=== PATIENT | female | born 1945 | race Caucasian/White ===

== ENCOUNTER 2023-04-25 07:50 | Emergency (ER) | payer MEDICARE, SELFPAY ==
[2023-04-25 07:53] VITALS: BP 170/109
[2023-04-25 09:15] VITALS: BMI 20.3
--- NOTE | 2023-04-25 09:17 | ED.GENMED ---
History of Present Illness
<SORAYA Davalos - Last Filed: 04/25/23 10:54>
General
Chief Complaint: Fall
Source: patient
Exam Limitations: none
Time Seen by Provider: 04/25/23 09:01
Nursing documentation reviewed up to this point in time: agreed with
Travel History
Have you had any contact with someone who has COVID-19?: No
Do you have any symptoms of coronavirus? Fever > 100 degrees, chills, cough, shortness of breath, sore throat, loss of taste or smell, muscle aches, or headache?: No
History of Present Illness
History of Present Illness:
Patient is a 77-year-old female who fell down approximately 13 wooden steps this morning. She did hit the right side of her head. She denies loss of consciousness. She does have soreness to the right side of her head. She c/o of neck pain.
She is not on blood thinners. She reports that she scraped her legs but denies any leg pain.
Past History
<SORAYA Davalos - Last Filed: 04/25/23 10:54>
Past History
ED Past Medical History: None
ED Past Surgical History: Appendectomy and Gynecological (Hysterectomy)
Social History
Tobacco: Non-smoker
Alcohol: None
Drug: None
Personal:
Living: with family
Review of Systems
<SORAYA Davalos - Last Filed: 04/25/23 10:54>
Review of Systems
Allergies reviewed?: Yes
All Other Systems: ROS reviewed and negative except as documented in HPI and ROS
Constitutional: Denies fever, fatigue or chills
Cardiac: Reports no symptoms
ABD/GI: Reports no symptoms; Denies nausea or vomiting
Musculoskeletal: Reports other (Neck pain)
Skin: Reports no symptoms
Neurological: Reports other (Right sided bruise to head); Denies dizzy or headache
Phy Exam
<SORAYA Davalos - Last Filed: 04/25/23 10:54>
General Physical Exam
General Presentation: no apparent distress
General age: appears stated age
General Skin: warm and dry
General Habitus: elderly
General Mental: alert
General Hydration: appears well hydrated
Eye Exam
Eye Exam: PERRL and EOMI
Eye Exam General: PERRL: bilateral and EOM intact: bilateral
Pupil Exam: Bilateral: round and reactive
Neurological Exam
Neurological Exam: alert and oriented x3
Musculoskeletal Exam
Musculoskeletal Exam: other (head with right sided hematoma to right lateral eyebrow region , tender throughout cervical spine)
Skin Exam
Skin Exam: normal color and warm/dry
Psychiatric Exam
Psychiatric Exam: normal mood/affect
Course
<SORAYA Davalos - Last Filed: 04/25/23 10:54>
Orders/Labs/Results
Orders:
Orders
04/25/23 09:16
CT Head W/o Iv Contrast Urgent
Comment:
Reason For Exam: fall trauma
04/25/23 09:17
CT Cervical Spine W/o Iv Contr Urgent
Comment:
Reason For Exam: trauma
04/25/23 11:13
Type+Screen Urgent
Complete Blood Count/With Diff Urgent
Comprehensive Metabolic Panel Urgent
PTT Urgent
Prothrombin Time Urgent
Abnormal Lab Results
04/25/23
11:13
WBC 14.3 H 10^3/uL
(4.8-10.8)
MPV 11.2 H fL
(7.4-10.4)
Abs Immat Gran (auto) 0.1 H 10^3/uL
(0-0.05)
Absolute Neuts (auto) 12.3 H 10^3/uL
(1.4-6.5)
Neutrophils % 86.5 H %
(42.2-75.2)
Lymphocytes % 8.4 L %
(20.5-51.1)
Glucose 124 H mg/dl
(70-99)
Alkaline Phosphatase 142 H U/L
(38-126)
04/25/23 11:13
04/25/23 11:13
Vital Signs
Initial and Last Documented VS:
Initial Vital Signs
Temp Pulse BP Pulse Ox
36.7 C 84 170/109 94
04/25/23 07:53 04/25/23 07:53 04/25/23 07:53 04/25/23 07:53
Last Documented Vital Signs
Temp Pulse Resp BP Pulse Ox
36.7 C 79 16 186/113 95
04/25/23 07:53 04/25/23 10:24 04/25/23 10:24 04/25/23 10:24 04/25/23 10:24
[place] S[place] consulted with Physician
[place] consulted with physician?: Yes
Name of Physician Consulted: DR Zimmer
<Adilson Zimmer MD - Last Filed: 04/25/23 12:26>
Orders/Labs/Results
Orders:
Orders
04/25/23 09:16
CT Head W/o Iv Contrast Urgent
Comment:
Reason For Exam: fall trauma
04/25/23 09:17
CT Cervical Spine W/o Iv Contr Urgent
Comment:
Reason For Exam: trauma
04/25/23 11:13
Type+Screen Urgent
Complete Blood Count/With Diff Urgent
Comprehensive Metabolic Panel Urgent
PTT Urgent
Prothrombin Time Urgent
Abnormal Lab Results
04/25/23
11:13
WBC 14.3 H 10^3/uL
(4.8-10.8)
MPV 11.2 H fL
(7.4-10.4)
Abs Immat Gran (auto) 0.1 H 10^3/uL
(0-0.05)
Absolute Neuts (auto) 12.3 H 10^3/uL
(1.4-6.5)
Neutrophils % 86.5 H %
(42.2-75.2)
Lymphocytes % 8.4 L %
(20.5-51.1)
Glucose 124 H mg/dl
(70-99)
Alkaline Phosphatase 142 H U/L
(38-126)
04/25/23 11:13
04/25/23 11:13
Vital Signs
Initial and Last Documented VS:
Initial Vital Signs
Temp Pulse BP Pulse Ox
36.7 C 84 170/109 94
04/25/23 07:53 04/25/23 07:53 04/25/23 07:53 04/25/23 07:53
Last Documented Vital Signs
Temp Pulse Resp BP Pulse Ox
36.7 C 79 16 186/113 95
04/25/23 07:53 04/25/23 10:24 04/25/23 10:24 04/25/23 10:24 04/25/23 10:24
<SORAYA Davalos - Last Filed: 04/25/23 10:54>
MDM/Problems Addressed
Differential Diagnosis Includes:
Not limited to head injury, intracranial hemorrhage, cervical sprain versus fracture
MDM/Problems Addressed:
Patient is a 77-year-old female who fell down 13 wooden steps hitting the right side of her head no loss of conscious no blood thinners. Patient tender throughout the neck. Cervical collar was placed upon arrival during my exam. CAT scan does
show a type II odontoid fracture which is mildly displaced. Patient evaluated by Dr. Zimmer. Patient wishes to go to [facility]. Dr. Zimmer spoke to who does accept patient. Patient remains in collar. Stable neurologically
<SORAYA Davalos - Last Filed: 04/25/23 10:54>
*Radiology
Radiology exam reviewed: radiology read reviewed
*Pulse Oximetry
Patient hypoxic: no
*Critical Care Note
Total Time (30-74mins, 75-104mins- exclusive of procedures): Not Applicable
ED Attending Note
<SORAYA Davalos - Last Filed: 04/25/23 10:54>
-
Portions of this chart may have been created with voice recognition software.� Occasional wrong word or��sound alike� substitutions may have occurred due to the inherent limitations of voice recognition software.
<Adilson Zimmer MD - Last Filed: 04/25/23 12:26>
ED Attending Note
Patient seen and examined by attending physician: Yes
ED Attending Note:
I have seen and evaluated the patient with a [id number] encounter. I have spoken to the advance practicer provider and involved in the medical history, the physical exam, medical decision making.
Evaluation and management service: agree unless noted differently below.
Results interpretation: agree unless noted differently below.
Focused HPI: 77-year-old female presents with her from home for evaluation after a fall down about 13 steps this morning. She says she was trying to the bathroom and lost her balance and fell. She says she did hit her head but did not lose
consciousness. Complains of mild occipital headache and neck pain. She denies any back pain. Denies any chest pain or abdominal pain. She denies any pain in her extremities. Denies any numbness or weakness in her extremities. No nausea or
vomiting. She denies any blood thinners.
Physical exam: Awake and alert, oriented x 3 with a GCS of 15. Hypertensive otherwise normal vitals. She has mild contusion to the right forehead and mild abrasion. She has a several collar in place and she has some midline tenderness in the
upper cervical spine. She has no tenderness in the thoracic or lumbar spine. She has no chest wall tenderness. She has no abdominal tenderness. She has reproducible tenderness in her extremities and allows for full range of motion in all
extremities including both hips.
Medical Decision Makin-year-old female presents after fall down 13 steps complaining of headache and neck pain. Not on blood thinners. No other injuries noted. Hypertensive but otherwise normal vitals. Sent for CT head and cervical spine�CT
head negative but CT cervical spine shows type II odontoid fracture. Patient in a cervical collar. She is neurologically intact. Sent off basic labs which were largely unremarkable. Case discussed with trauma physician at [facility]
patient was accepted for transfer by Dr. Lucio.
Discharge Plan
Departure
Patient Disposition: Acute Care Hospital
Date of Disposition: 04/25/23
Time of Disposition: 10:51
Discharge Problem:
Odontoid fracture with type II morphology
Referrals:
Armond Pacheco MD [Family Provider] -
Hospital Transfer
Other hospital: [place]
I certify that the patient requires transfer: Yes
Discussed case with accepting physician: Dr. Lucio
Reason for transfer: specialties available
Interventions
Interventions:
*Risk Screen - Suicide Last Done: 04/25/23 09:16
*General Assessment Last Done: 04/25/23 09:16
*Neglect/Abuse Screening Last Done: 04/25/23 09:16
ED- Fall Risk Assessment Last Done: 04/25/23 09:16
*ED COVID-19 Vaccine History Last Done: 04/25/23 07:54
*Nursing Disposition Last Done: 04/25/23 11:46
ED-Musculoskeletal Assessment Last Done: 04/25/23 09:17
ED- Neurological Assessment Last Done: 04/25/23 09:17
ED-Skin Assessment Last Done: 04/25/23 09:17
Discharge Date and Time
Discharge Date/Time: 04/25/23 11:49
--- NOTE | 2023-04-25 09:20 | EDRN ---
Shaunna Aldana AIR BOX TESTER was in to see pt.
[2023-04-25 10:24] VITALS: BP 186/113
--- NOTE | 2023-04-25 10:26 | EDRN ---
in room w/ pt at this time.
--- NOTE | 2023-04-25 10:48 | EDRN ---
Pt placed on bedpan to void.
--- NOTE | 2023-04-25 11:01 | EDRN ---
Attempting to call report to [facility] at this time.
--- NOTE | 2023-04-25 11:11 | EDRN ---
Report called to Suzanne Ramos RN in trauma area who will care for pt at this time at [facility].
[2023-04-25 11:23] LABS: % Basophils 0.1 % (0-2); % Eosinophils 0.1 % (0-6); % Immature Granulocytes 0.5 % (0-0.5); % Lymphocytes 8.4 % (20.5-51.1); % Monocytes 4.4 % (1.7-9.3); % Neutrophils 86.5 % (42.2-75.2); Absolute Immature Granulocytes 0.1 10^3/uL (0-0.05); Absolute Lymphocytes 1.2 10^3/uL (1.2-3.4); Absolute Monocytes 0.6 10^3/uL (0.1-0.6); Absolute Neutrophils 12.3 10^3/uL (1.4-6.5); Hematocrit 39.7 % (37.0-47.0); Hemoglobin 13.2 g/dL (12.0-16.0); Mean Corp Hgb Conc. 33.2 g/dL (33.0-37.0); Mean Corpuscular Hgb 27.8 pg (27.0-31.0); Mean Corpuscular Volume 83.8 fL (81.0-99.0); Mean Platelet Volume 11.2 fL (7.4-10.4); Nucleated Red Blood Cells % 0 %; Platelet Count 224 10^3/uL (130-400); Red Blood Cell Count 4.74 10^6/uL (4.20-5.40); Red Cell Dist. Width 12.8 % (11.5-14.5); White Blood Cell Count 14.3 10^3/uL (4.8-10.8)
[2023-04-25 11:34] LABS: ALT (SGPT) 21 U/L (0-35); AST (SGOT) 26 U/L (14-36); Albumin 4.3 g/dl (3.5-5.0); Alkaline Phosphatase 142 U/L (38-126); Blood Urea Nitrogen 17 mg/dl (7-17); Calcium 9.1 mg/dl (8.4-10.2); Carbon Dioxide 27 mmol/L (22-30); Chloride 102 mmol/L (98-107); Estimated Creatinine Clearance 41 ml/min; Glucose 124 mg/dl (70-99); Potassium 3.7 mmol/L (3.5-5.1); Sodium 136 mmol/L (135-145); Total Bilirubin 0.7 mg/dl (0.2-1.3); Total Protein 7.3 g/dl (6.3-8.2); eGFR > 60.00
[2023-04-25 11:37] LABS: INR 1.05
--- NOTE | 2023-05-06 13:27 | OID.L.PAT ---
Pulmonary Nodule Pat Letter
- -
05/06/23
INCK SENA
[address]
[place], [place]
Jg ROMERO,
A pulmonary nodule was seen on an imaging study done by [facility]. This was reviewed by the [facility] Pulmonary Nodule Advisory Board and the following recommendation was made:
Recommendation: Follow up CT Chest - now
If you have any questions, please do not hesitate to contact your primary care physician. If you are in need of a Physician, you can go to [email or web address] and click on 'Find a Provider'. Type 'Family Medicine' in the search.
Oncology Nurse Navigator
[facility]
[phone]
--- NOTE | 2023-05-06 13:27 | OID.L.REC ---
Pulmonary Nodule Follow Up
- Recommendation
05/06/23
Pulmonary Nodule Review Recommendations
Your patient, NICK SENA, had a pulmonary nodule seen on a CT Cervical Spine done on 04/25/23 in the [facility] Emergency Room.
This was reviewed by the [facility] Pulmonary Nodule Advisory Board and the following recommendation was made:
Recommendation: Follow up CT Chest - now
If you have any questions please do not hesitate to contact us.
Sincerely,
Oncology Nurse Navigator
[facility]
[phone]
== END 2023-04-25 11:49 | disposition short-term general hospital (02) ==
LOC: EMR 07:50
PROVIDERS: EMERGENCY PHYSICIAN Emergency Medicine; FAMILY PHYSICIAN Family Medicine
DX: S12.110A Anterior displaced Type II dens fracture, initial encounter for closed fracture (principal); W10.9XXA Fall (on) (from) unspecified stairs and steps, initial encounter; Z90.49 Acquired absence of other specified parts of digestive tract; Z90.710 Acquired absence of both cervix and uterus
CPT/HCPCS: 99284; 70450; 72125; 80053; 85025; 85610; 85730; 86850; 86900; 86901

== ENCOUNTER 2024-06-26 16:30 | Emergency (ER) | payer MEDICARE, SELFPAY ==
[2024-06-26 16:32] VITALS: BP 164/115
[2024-06-26 19:12] VITALS: BP 178/107; BMI 22.8
[2024-06-26] MEDS: TYLENOL 650 MG PO (19:52)
[2024-06-26 20:28] VITALS: BP 176/99
--- NOTE | 2024-06-26 20:44 | ED.GENMED ---
History of Present Illness
General
Chief Complaint: Fall
Source: patient
Exam Limitations: none
Time Seen by Provider: 06/26/24 19:15
Nursing documentation reviewed up to this point in time: agreed with
History of Present Illness
History of Present Illness:
Patient presents to ED for evaluation after losing balance and falling forward, and hitting her face on the ground. Patient denies loss of consciousness. Denies headache or neck pain. Denies dizziness. Denies nausea or vomiting. Denies loss of
sensation or weakness. Patient presents with left facial pain with bruising, as well as chin laceration. Patient states that her vaccinations are up-to-date.
Past History
Past History
ED Past Medical History: None
ED Past Surgical History: Appendectomy and Gynecological (Hysterectomy)
Social History
Tobacco: Non-smoker
Alcohol: None
Drug: None
Personal:
Living: with family
Review of Systems
Review of Systems
Allergies reviewed?: Yes
All Other Systems: ROS reviewed and negative except as documented in HPI and ROS
Constitutional: Reports no symptoms
Respiratory: Denies trouble breathing
Cardiac: Denies palpitations or syncope
ABD/GI: Reports no symptoms; Denies vomiting
Musculoskeletal: Reports no symptoms
Skin: Reports other (Chin laceration, facial contusion)
Neurological: Reports no symptoms; Denies dizzy, headache or weakness
Phy Exam
Physical Exam
Physical Exam:
Physical Exam
General: mild distress, not acutely ill. afebrile
Head: eomi. left facial swelling/ecchymosis noted
Neck: supple. normal range of motion. no midline tenderness.
Heart: s1/s2 regular rate and rhythm, no murmur.
Lungs: no acute respiratory distress. clear bilaterally. chest wall nontender to palpation
Abdomen: normal bowel sounds. not tender.
Neuro: alert and oriented x 3. no focal neurological deficits
Skin: no rash. an approx 2cm superficial horizontal laceration noted over mid-chin. tongue ecchymosis/superficial laceration noted
Psychiatric: well kept. interactive and cooperative
Extremities: no edema. no calf tenderness.
Course
Orders/Labs/Results
Orders:
Orders
06/26/24 19:37
CT Facial Bones W/o Iv Contras Urgent
Comment:
Reason For Exam: trauma
Ice Pack-Treatment DIRECTED
Location: face
Acetaminophen [Tylenol] 650 mg PO NOW STA
06/26/24 20:47
CR Chest - 2 Views Urgent
Comment:
Reason For Exam: chest pain, s/p fall
06/26/24 21:55
Oxycodone [Roxicodone] 5 mg .ROUTE .STK-MED ONE
06/26/24 21:58
Oxycodone [Roxicodone] 5 mg PO NOW STA
Vital Signs
Initial and Last Documented VS:
Initial Vital Signs
Temp Pulse Resp BP Pulse Ox
98.5 F 105 16 164/115 97
06/26/24 16:32 06/26/24 16:32 06/26/24 16:32 06/26/24 16:32 06/26/24 16:32
Last Documented Vital Signs
Temp Pulse Resp BP Pulse Ox
98.5 F 96 16 141/97 96
06/26/24 16:32 06/26/24 19:20 06/26/24 16:32 06/26/24 21:00 06/26/24 22:15
Procedures
Laceration Closure
Middle Chin:
Status of Wound: clean
Size of Wound in cm: 2
Description of Wound Edges: sharp
Preparation: cleaned with SurClens
Anesthesia: 1% Lidocaine with epi
Revision/Debridement: routine- no revision
Type of Closure: single layer closure
Skin Closure Material: 5-0 nylon
Number of sutures: 3
MDM/Problems Addressed
MDM/Problems Addressed:
Patient will follow-up with PCP for reevaluation, including suture removal in 7 to 10 days. Wound well-approximated with placement of [address] report reviewed and discussed with patient and her spouse. In addition, discussed with on-call OMFS, Dr. Giang, who feels the patient can be discharged home at this time, and he will see the patient in office on Saturday for reevaluation. Patient
and spouse expressed understanding at time of discharge of the treatment plan. Patient will be given short course of Percocet, to be used at home, along with ice application. Soft diet recommended.
*Critical Care Note
Total Time (30-74mins, 75-104mins- exclusive of procedures): Not Applicable
ED Attending Note
-
Portions of this chart may have been created with voice recognition software.� Occasional wrong word or��sound alike� substitutions may have occurred due to the inherent limitations of voice recognition software.
Discharge Plan
Departure
Patient Disposition: Home (Routine Discharge)
Date of Disposition: 06/26/24
Time of Disposition: 22:37
Patient with high blood pressure during this ER visit?: Yes
Condition: Good
Discharge Problem:
Mandibular fracture, Chin laceration, Contusion
Instructions: Jaw Fracture (DC), Contusion (DC), Laceration Repair With Stitches (DC)
Prescriptions:
New
oxycodone-acetaminophen [Percocet] 5-325 mg Tablet
1 tab PO Q6HPRN PRN (Reason: pain) Qty: 12 0RF
Referrals:
Armond Pacheco MD [Family Provider] -
Lb Giang DMD, MD [Active] -
Activity Restrictions/Additional Instructions:
As discussed, please follow-up with your primary care physician for reevaluation, including suture removal in 7 to 10 days. In addition, please follow-up with referred oral maxillary facial surgeon on Saturday regarding fracture of your mandible.
Your prescription has been sent electronically to [facility] pharmacy in [place].
Interventions
Interventions:
*Risk Screen - Suicide Last Done: 06/26/24 16:36
*General Assessment Last Done: 06/26/24 19:12
*Neglect/Abuse Screening Last Done: 06/26/24 16:36
*ED- Fall Risk Assessment Last Done: 06/26/24 19:12
*ED COVID-19 Vaccine History Last Done: 06/26/24 19:12
*Nursing Disposition Last Done: 06/26/24 22:45
ED-Musculoskeletal Assessment Last Done: 06/26/24 19:12
ED- Neurological Assessment Last Done: 06/26/24 19:12
ED-Skin Assessment Last Done: 06/26/24 19:12
Discharge Date and Time
Discharge Date/Time: 06/26/24 22:48
Print Language: SIERRA LEONEAN
[2024-06-26 21:00] VITALS: BP 141/97
[2024-06-26] MEDS: ROXICODONE 5 MG PO (21:58)
== END 2024-06-26 22:48 | disposition home or self-care (01) ==
LOC: EMR 16:30
PROVIDERS: EMERGENCY PHYSICIAN Emergency Medicine; FAMILY PHYSICIAN Family Medicine
DX: S02.642A Fracture of ramus of left mandible, initial encounter for closed fracture (principal); S01.81XA Laceration without foreign body of other part of head, initial encounter; W01.0XXA Fall on same level from slipping, tripping and stumbling without subsequent striking against object, initial encounter
CPT/HCPCS: 99284; 12011; 70486; 71046

== ENCOUNTER 2024-09-02 22:07 | Observation (INO) | payer MEDICARE, SELFPAY ==
[2024-09-02 17:20] VITALS: BP 166/112
[2024-09-02 17:40] LABS: % Basophils 0.3 % (0-2); % Eosinophils 0.6 % (0-6); % Immature Granulocytes 0.4 % (0-0.5); % Monocytes 7.4 % (1.7-9.3); % Neutrophils 70.3 % (42.2-75.2); Absolute Lymphocytes 1.5 10^3/uL (1.2-3.4); Absolute Monocytes 0.5 10^3/uL (0.1-0.6); Hematocrit 37.9 % (37.0-47.0); Hemoglobin 12.4 g/dL (12.0-16.0); Mean Corp Hgb Conc. 32.7 g/dL (33.0-37.0); Mean Corpuscular Hgb 27.2 pg (27.0-31.0); Mean Corpuscular Volume 83.1 fL (81.0-99.0); Mean Platelet Volume 10.3 fL (7.4-10.4); Nucleated Red Blood Cells % 0 %; Platelet Count 224 10^3/uL (130-400); Red Blood Cell Count 4.56 10^6/uL (4.20-5.40); Red Cell Dist. Width 12.6 % (11.5-14.5); White Blood Cell Count 7.1 10^3/uL (4.8-10.8)
[2024-09-02 17:57] LABS: ALT (SGPT) 11 U/L (0-35); AST (SGOT) 15 U/L (14-36); Albumin 4.4 g/dl (3.5-5.0); Alkaline Phosphatase 122 U/L (38-126); Blood Urea Nitrogen 25 mg/dl (7-17); Calcium 9.3 mg/dl (8.4-10.2); Carbon Dioxide 26 mmol/L (22-30); Chloride 108 mmol/L (98-107); Glucose 165 mg/dl (70-99); Potassium 4.5 mmol/L (3.5-5.1); Sodium 142 mmol/L (135-145); Total Bilirubin 0.4 mg/dl (0.2-1.3); Total Protein 7.5 g/dl (6.3-8.2); eGFR 57.31
[2024-09-02 20:14] VITALS: BP 189/118; BMI 22.1
--- NOTE | 2024-09-02 20:40 | ED.GENMED ---
History of Present Illness
General
Chief Complaint: Social Service Referral
Source: patient and spouse
Exam Limitations: dementia
Time Seen by Provider: 09/02/24 20:04
History of Present Illness
History of Present Illness:
79yoF with a history of hypertension, hyperlipidemia, and dementia presenting with her for social issues. Patient lives at home with her . states that she has not been taking her medications for about a week or 2. He is
very frustrated and has been unable to get her to take these medications. He has been speaking with his PCP and decided that he would like patient placed in a penitentiary. He was told to bring her to the ED to establish placement.
Past History
Past History
ED Past Medical History: None
ED Past Surgical History: Appendectomy and Gynecological (Hysterectomy)
Social History
Tobacco: Non-smoker
Alcohol: None
Drug: None
Personal:
Living: with family
Phy Exam
General Physical Exam
General Presentation: well appearing and no apparent distress
General Skin: warm and dry
General Habitus: normal and elderly
ENT Exam
ENT Exam: normocephalic
Pulmonary Exam
Pulmonary Exam: no respiratory distress
Neurological Exam
Neurological Exam: alert
Skin Exam
Skin Exam: normal color and warm/dry
Psychiatric Exam
Psychiatric Exam: normal mood/affect
Course
Orders/Labs/Results
Orders:
Orders
09/02/24 17:32
CMP [Comprehensive Metabolic Panel] Urgent
Complete Blood Count/With Diff Urgent
09/02/24 21:40
Admit/Transfer Patient As Directed
Co-Sign Provider:
Level of Care: Observation services
Assign to:: Medical/Surgical
Physician / Group: paula harman
Diagnosis: Advanced dementia noncompliance with medication
Code Status As Directed
Resuscitation Status: Full Code
Amlodipine [Norvasc] 5 mg PO NOW STA
09/02/24 21:42
PRN Pain Medication Management As Directed
May give lesser potent ordered pain med per pt: Yes
preference::
Protocol:: Medication orders for pain may be administered in a
manner that supports deferring to patient preference
when the pt is:
- Requesting an ordered lesser potent pain medication.
Least to most potent pain medications are defined
as: acetaminophen < NSAID < tramadol < opioids
(morphine, oxycodone, hydromorphone).
- Requesting a lesser dose of the same medication IF
ORDERED.
- Requesting a less intrusive route of administration
if both routes are prescribed by the provider (PO <
IV).
Abnormal Lab Results
09/02/24
17:32
MCHC 32.7 L g/dL
(33.0-37.0)
Chloride 108 H mmol/L
(98-107)
BUN 25 H mg/dl
(7-17)
Glucose 165 H mg/dl
(70-99)
09/02/24 17:32
09/02/24 17:32
Vital Signs
Initial and Last Documented VS:
Initial Vital Signs
Temp Pulse Resp BP Pulse Ox
98.2 F 89 20 166/112 94
09/02/24 17:20 09/02/24 17:20 09/02/24 17:20 09/02/24 17:20 09/02/24 17:20
Last Documented Vital Signs
Temp Pulse Resp BP Pulse Ox
98.7 F 88 18 166/98 94
09/02/24 20:14 09/02/24 21:52 09/02/24 20:14 09/02/24 23:00 09/02/24 23:15
MDM/Problems Addressed
Differential Diagnosis Includes:
79yoF here for penitentiary placement. Hx of dementia and patient unable to care for her any longer. Has not been taking her BP meds x 1-2 weeks. Patient has no complaints at this time. BP 166/112 on arrival. She is well appearing in no distress.
Differential diagnosis includes: Failure to thrive, dementia, medication noncompliance, hypertensive urgency
Labs obtained in triage and creatinine is normal. Will admit for case management consult and placement.
*Critical Care Note
Total Time (30-74mins, 75-104mins- exclusive of procedures): Not Applicable
ED Attending Note
-
Portions of this chart may have been created with voice recognition software.� Occasional wrong word or��sound alike� substitutions may have occurred due to the inherent limitations of voice recognition software.
Discharge Plan
Departure
Patient Disposition: Admit
Date of Disposition: 09/02/24
Time of Disposition: 21:14
Presentation/result/management discussed w/ accepting MD/DO: Hospitalist
Discharge Problem:
Hospital admission due to social situation, Hypertension, Noncompliance with medications
Interventions
Interventions:
*Risk Screen - Suicide Last Done: 09/02/24 17:26
*General Assessment Last Done: 09/02/24 17:20
ED-Psychological Assessment Last Done: 09/02/24 20:34
--- NOTE | 2024-09-02 21:19 | HPS.HSE ---
Family Physician
-
Family Physician: Armond Pacheco
Chief Complaint
-
Noncompliance with home medications has been unable to take care
History of Present Illness
79-year-old female from home where she lives with her who has been taking care of her. is reporting to ER he is frustrated has been unable to get her to take her medications he is unable to care for her anymore and would like
fdc placement. Patient is oriented to name and has been only. She is pleasantly cooperative she denies headache, blurred vision, chest pain, palpitations, cough, shortness of breath, abdominal pain, nausea, vomiting, diarrhea, urinary
symptoms. She states I know I have to take my blood pressure medicine but I havent. According to patient's Lb she is able to walk without assistance perform ADLs but needs him to go grocery shopping. She heats things up in the
microwave but is unable to cook on the stove.
She has past medical history hypertension, hyperlipidemia, dementia
Medical History
Past Medical History
Past Medical History: Reports Other
Additional Past Medical History:
hypertension
hyperlipidemia
dementia
Past Surgical History: Reports Other
Additional Past Surgical History:
Appendectomy
Hysterectomy
Social History
Tobacco: Non-smoker
Alcohol: None
Drug: None
Personal:
Living: With Family ()
Employment: Retired
Family History
Family History: Unable to Obtain
Allergies / Home Medications
Allergies reflects when Allergies were last updated in [employer].
Home Medications with original date entered in [employer]
Allergy/Medication List:
Medications on admission are unable to be verified or confirmed at this time.
Has been unsure of list patient uses [facility] which is currently closed
Review of Systems
-
History Source: Patient and Family ( Lb at bedside)
A 12 point ROS was completed and negative except as noted: Yes
Constitutional: Denies Fever or Chills
EENT: Denies Sore Throat or Runny Nose
Respiratory: Denies Cough or Trouble Breathing
Cardiac: Denies Chest Pain, Diaphoresis, Palpitations or Syncope
Abdomen/GI: Denies Abdominal Pain, Nausea, Vomiting, Diarrhea, Constipated, Bloody Stools or Black Stools
: Denies Dysuria, Frequency, Flank Pain, Incontinence, Difficulty Voiding or Urgency
Musculoskeletal: Denies Joint Pain or Edema
Skin: Denies Itching or Rash
Neurological: Denies Dizzy, Headache or Weakness
Endocrine: Reports No Symptoms
Hematologic/Lymphatic: Reports No Symptoms
Physical Exam
Vital Signs
Vital Signs
Temp Pulse Resp BP Pulse Ox
98.7 F 91 18 189/118 97
09/02/24 20:14 09/02/24 20:14 09/02/24 20:14 09/02/24 20:14 09/02/24 20:14
Physical Exam
General: Conversant; No Pain, Fever or Chills
HEENT: NormoCephalic, Anicteric, Moist mucous membranes, PERRLA, [place] Conjunctivae and No Ptosis
Respiratory: Clear; No Wheezes, Rales or Rhonchi
Cardiac: S1/S2 and Regular Rhythm; No Murmur, Rub, Gallop or Peripheral Edema
Breast: Deferred by me
GI: Soft, Non Tender, Non Distended, Normal Bowel Sounds and No Hepatosplenomegaly
Rectal: Deferred by Provider
Genito-urinary: Deferred by me
Musculoskeletal: No Clubbing, No Cyanosis and No Edema
Skin: Warm and Dry; No Rash or Jaundice
Neuro: AO x 3, No Motor Deficits, Nonfocal/grossly intact, Cranial Nerves Intact and No Sensory Deficits; No Slurred Speech, Facial Droop, Tremors or Sedated
Psych: Calm
Laboratory Results
-
09/02/24 17:32
09/02/24 17:32
Laboratory Results
Total Bilirubin 0.4 mg/dl (0.2-1.3) 09/02/24 17:32
AST 15 U/L (14-36) 09/02/24 17:32
ALT 11 U/L (0-35) 09/02/24 17:32
Alkaline Phosphatase 122 U/L (38-126) 09/02/24 17:32
Data Reviewed
-
Lab Data: Labs Reviewed by me
Impression/Plan
-
Impression/plan:
Observation MedSurg
#Advanced dementia
- Consult case management for fdc placement
- Uses [facility] will need to call for medications in a.m.
#Noncompliance with medication due to dementia
- Not taking medications for approximately 1 week per
#Hypertension
BP 189/118
Patient denies headache or chest pain
Will start amlodipine 5 mg now then continue amlodipine daily
#HLD
- Unsure if meds
DVT prophylaxis
Subcu heparin
Full code Lb [phone]
--- NOTE | 2024-09-02 21:20 | W.PN.UPDATE ---
Update Note
Progress Note Update
I have independently examined the patient and agree with H&P written on the same date. In addition:
79yo F with PMHx of HTN, dementia and HLD, Hx of falls brought by her since he was not able to care for her anymore
-Social issue
CM for placement
-Uncontrolled HTN
Amlodipine and cont outpatient follow up
We have spent at least 55min admitting the patient
[2024-09-02 21:50] VITALS: BP 157/90
[2024-09-02] MEDS: NORVASC 5 MG PO (21:52)
[2024-09-02 22:00] VITALS: BP 145/83
[2024-09-02 23:00] VITALS: BP 166/98
[2024-09-03] MEDS: HEPARIN 5000 UNITS SC (08:03)
[2024-09-03 08:20] VITALS: BP 135/100
[2024-09-03 08:35] VITALS: BP 138/107; PULSE 77; O2SAT 94
--- NOTE | 2024-09-03 08:46 | PTCARENOTE ---
pt oriented to self. forgetful impulsive. follows commands. pt at bedside. pt ambulates to bathroom. bed alarm in place
[2024-09-03 09:25] VITALS: BP 138/107; PULSE 74; O2SAT 94
--- NOTE | 2024-09-03 09:33 | PTOTSP ---
The patient was able to ambulate in the hallway without instability. present during session and reports her mobility is at her baseline, noting the only challenge is getting her to take her medications. No PT needs identified at this time,
will sign off.
--- NOTE | 2024-09-03 09:33 | PTOTSP ---
pt currently requires supervision to no assistance to complete simple ADLs, functional transfers, ambulation. pt follows simple one step direction, will have difficulty following due to language barrier and understanding/comprehension due to
dementia. spouse reports pt is not taking medication because she believes it is making her teeth fall out. pt is eating and caring for herself without physical assistance. no acute OT needs identified at this time, will sign off.
--- NOTE | 2024-09-03 11:22 | CM ---
Addendum entered by Talita Rhodes 09/03/24 11:47:
[place] given
Original Note:
CM reviewed chart and met with pt and at bedside in ED. Pt lives with her and 2 sons in 2 story home, 1 [address]. 1st floor Powder room. Per sons do not assist in home. No DME in home.
Per , his biggest concern is that she will not take her pills. He says she complains they hurt her teeth, she nodded in agreement. He said she has seen a dentist recently and needs additional dental work done.
Pt's asked that I call their son Qamar [phone], he lives in [place]. I spoke to Qamar, he states his mother does not have a dementia diagnosis but he believes she does have cognitive decline. Discussed with pt's and her
son she does not have skilled need for SNF per PT/OT evals. Discussed LTC and also private pay [employer]. and son aware that LTC is also private pay.
Qamar wants to speak to his brother that lives in [place], his is an [employer] HELPER and helps with decision making.
A list of LTC facilities close to their home was given to . I spoke to her her son about [facility] and texted our crack off person information to him at his request. CM will continue to follow for discharge planning needs.
PLOF: Independent in ADLs, ambulates and climbs stairs without assistance.
PCP: Armond Pacheco
Pharmacy: [facility]
Plan: Home pending ongoing medical evaluation and family decision regarding LTC
--- NOTE | 2024-09-03 12:58 | W.PN.HOSP.TC ---
Addendum entered and electronically signed by Jett Lyles MD 09/04/24 15:40:
[id number]
Original Note:
Today's Communication/Plan
-
medically clear
case management engaging with family for further assistance
Assessment / Plan
Assessment / Plan
Physical Exam
General: Conversant; No Pain, Fever or Chills
HEENT: NormoCephalic, Anicteric, Moist mucous membranes, PERRLA, [place] Conjunctivae and No Ptosis
Respiratory: Clear; No Wheezes, Rales or Rhonchi
Cardiac: S1/S2 and Regular Rhythm; No Murmur, Rub, Gallop or Peripheral Edema
Breast: Deferred by me
GI: Soft, Non Tender, Non Distended, Normal Bowel Sounds and No Hepatosplenomegaly
Rectal: Deferred by Provider
Genito-urinary: Deferred by me
Musculoskeletal: No Clubbing, No Cyanosis and No Edema
Skin: Warm and Dry; No Rash or Jaundice
Neuro: AO x 1, No Motor Deficits, Nonfocal/grossly intact, Cranial Nerves Intact and No Sensory Deficits; No Slurred Speech, Facial Droop, Tremors or Sedated
Psych: Calm
#Advanced dementia
- Consult case management for fci placement
- Uses [facility] will need to call for medications in a.m.
#Noncompliance with medication due to dementia
- Not taking medications for approximately 1 week per
#Hypertension
BP 189/118
Patient denies headache or chest pain
Will start amlodipine 5 mg now then continue amlodipine daily
#HLD
- Unsure if meds
DVT prophylaxis
Subcu heparin
Full code Lb [phone]
More than 30 minutes spent in discharge including
Final examination of the patient
Summarizing hospital stay
Instructions for continuing care to all relevant caregivers
Preparation of discharge records, prescriptions, and referral forms
Total time spent (in minutes): 37
Anticipated Discharge: Today
Subjective/Interval History
-
Date of Service: September 03, 2024
no acute events
Objective Data
-
Vital Signs:
Vital Signs
Temp Pulse Resp BP Pulse Ox
98.0 F 73 16 135/100 95
09/03/24 08:58 09/03/24 08:20 09/03/24 08:20 09/03/24 08:20 09/03/24 08:20
Review of Systems
-
History Source: Patient
All other systems: Not reviewed unless documented
Data Reviewed
-
Labs: Labs Reviewed by me
--- NOTE | 2024-09-03 13:11 | W.DS.TRANS ---
DC Summary - [employer] [employer]
-
Discharge Instructions:
Discharge Diagnosis/Procedures Dementia
Diet Low Cholesterol,Low Fat
Blood Work cbc and cmp as per PCP
Instructions:
Stand-Alone Forms:
Changes to Home Medications: Yes
Discharge Medications:
DC Medications w/original date entered in [employer]
amlodipine 5 mg tablet 5 mg PO DAILY Blood Pressure 30 days #0 tabs 09/03/24
aspirin 81 mg chewable tablet 81 mg PO DAILY #90 tabs 09/03/24
atorvastatin 40 mg tablet (Lipitor) 40 mg PO QPM High Cholesterol 09/03/24
donepezil 10 mg tablet 10 mg PO HS Neurological Condition 09/03/24
ferrous sulfate 300 mg (60 mg iron)/5 mL oral liquid 300 mg (5 mL) PO DAILY #500 mL 09/03/24
Home Medication Changes
aspirin 81 mg chewable tablet 81 mg PO DAILY #90 tabs 09/03/24
ferrous sulfate 300 mg (60 mg iron)/5 mL oral liquid 300 mg (5 mL) PO DAILY #500 mL 09/03/24
Pending Results: No
[2024-09-03 14:13] VITALS: BP 130/88
== END 2024-09-03 14:34 | disposition home or self-care (01) ==
LOC: ED 22:07
PROVIDERS: Emergency Medicine; ADMITTING PHYSICIAN Internal Medicine; ATTENDING PHYSICIAN Internal Medicine; EMERGENCY PHYSICIAN Emergency Medicine; FAMILY PHYSICIAN Family Medicine
DX: F03.90 Unspecified dementia, unspecified severity, without behavioral disturbance, psychotic disturbance, mood disturbance, and anxiety (principal); Z02.2 Encounter for examination for admission to residential institution; Z91.148 Patient's other noncompliance with medication regimen for other reason; I10 Essential (primary) hypertension; E78.5 Hyperlipidemia, unspecified
CPT/HCPCS: 80053; 85025; 97167; G0378

== ENCOUNTER 2024-11-12 14:04 | Inpatient (IN) | payer OTHER, MEDICARE, SELFPAY ==
[2024-11-12] VITALS (9 sets, daily range): BP systolic 110–156; BP diastolic 65–91; BMI 17.9
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
[2024-11-12] MEDS: MORPHINE SULFATE 4 MG IV (11:48)
[2024-11-12 12:04] LABS: Hematocrit 37.8 % (37.0-47.0); Hemoglobin 12.2 g/dL (12.0-16.0); Mean Corp Hgb Conc. 32.3 g/dL (33.0-37.0); Mean Corpuscular Volume 82.9 fL (81.0-99.0); Nucleated Red Blood Cells % 0 %; Platelet Count 233 10^3/uL (130-400); Red Cell Dist. Width 12.9 % (11.5-14.5)
[2024-11-12 12:15] LABS: INR 1.09; PT 14.7 Sec (11.4-14.6)
[2024-11-12 12:16] LABS: APTT 26.7 Sec (23.4-35.0)
[2024-11-12 12:21] LABS: ALT (SGPT) 10 U/L (0-35); AST (SGOT) 17 U/L (14-36); Albumin 4.4 g/dl (3.5-5.0); Alkaline Phosphatase 106 U/L (38-126); Blood Urea Nitrogen 15 mg/dl (7-17); Calcium 8.9 mg/dl (8.4-10.2); Carbon Dioxide 26 mmol/L (22-30); Chloride 102 mmol/L (98-107); Estimated Creatinine Clearance 29 ml/min; Glucose 252 mg/dl (70-99); Potassium 4.5 mmol/L (3.5-5.1); Sodium 140 mmol/L (135-145); Total Protein 7.1 g/dl (6.3-8.2); eGFR 51.11
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
[2024-11-12] MEDS: TYLENOL PO ×2 (18:21→21:16)
[2024-11-12] MEDS: LIPITOR PO (18:22)
[2024-11-12] MEDS: COLACE PO (21:15)
[2024-11-12] MEDS: SENOKOT PO (21:16)
--- NOTE | 2024-11-12 22:03 | PTCARENOTE ---
pt vss. denies pain, pt's past medical hx: dementia, htn, ckd.
--- NOTE | 2024-11-12 22:30 | PTCARENOTE ---
Addendum entered by Danya Pat RN 11/12/24 23:46:
No post op diet/ no AM blood work ordered . SORAYA Johnson made aware.
Original Note:
Rec'd patient from PACU. AAO X2. Pleasantly confused. stable vitals. Dressing on Right hip CDI. Bed alarm in place for safety. Neuro vascular check WNL. POC reviewed with patient.
[2024-11-12] MEDS: ARICEPT 10 MG PO (23:16)
[2024-11-12] MEDS: TYLENOL 650 MG PO (23:16)
[2024-11-13] VITALS (9 sets, daily range): BP systolic 118–144; BP diastolic 70–95
[2024-11-13] MEDS: ROXICODONE 5 MG PO (01:58)
[2024-11-13] MEDS: TYLENOL PO ×2 (04:54→15:54)
--- NOTE | 2024-11-13 06:14 | PTCARENOTE ---
Patient with vomiting x2, her Compazine/ Zofran orders are pacu orders. Notified SORAYA Johnson.
[2024-11-13] MEDS: ZOFRAN 4 MG IV ×2 (06:20→15:54)
[2024-11-13 07:53] LABS: Hematocrit 31.5 % (37.0-47.0); Hemoglobin 10.3 g/dL (12.0-16.0); Mean Corp Hgb Conc. 32.7 g/dL (33.0-37.0); Mean Corpuscular Volume 81.0 fL (81.0-99.0); Platelet Count 192 10^3/uL (130-400); Red Cell Dist. Width 12.9 % (11.5-14.5)
[2024-11-13 08:18] LABS: Blood Urea Nitrogen 18 mg/dl (7-17); Calcium 8.6 mg/dl (8.4-10.2); Carbon Dioxide 26 mmol/L (22-30); Chloride 100 mmol/L (98-107); Estimated Creatinine Clearance 35 ml/min; Glucose 332 mg/dl (70-99); Magnesium 2.2 mg/dl (1.6-2.3); Potassium 4.3 mmol/L (3.5-5.1); Sodium 136 mmol/L (135-145); eGFR > 60.00
--- NOTE | 2024-11-13 08:23 | W.PN.ORTHO ---
Today's Communication / Plan
-
79-year-old female postoperative day 1 right cephalomedullary nail fixation with Dr. Stevens
- Protected weightbearing with assist devices. PT/OT
- Postoperative antibiotics
- Discharge planning
- DVT PPx per primary
- Pain well-controlled on current regimen
- Diet per primary
Orthopedic surgery will continue to follow
Assessment
.
Distal Motor Intact: Yes
Dressing:
Clean, dry and intact.
Plan
.
Surgery / Date: 11/12/2024 right CMN
Activity:
Out of bed.
PT/OT
Subjective
.
.:
Patient resting comfortably.
Vital Signs and Labs
.
Vital Signs and Labs:
Lab Results
11/13/24 07:23
11/13/24 07:23
Temp Pulse Resp BP Pulse Ox
98.1 F 88 19 137/95 96
11/13/24 03:25 11/13/24 03:25 11/13/24 03:25 11/13/24 03:25 11/13/24 03:25
PT 14.7 Sec (11.4-14.6) H 11/12/24 11:52
INR 1.09 11/12/24 11:52
[2024-11-13] MEDS: NORVASC 5 MG PO (09:31)
[2024-11-13] MEDS: COLACE 100 MG PO ×2 (09:32→19:45)
[2024-11-13] MEDS: TYLENOL 650 MG PO ×3 (09:32→19:47)
[2024-11-13] MEDS: SENOKOT 17.2 MG PO ×2 (09:32→19:48)
[2024-11-13] MEDS: LOW STRENGTH ASPIRIN 81 MG PO (09:33)
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
[2024-11-13] MEDS: ANCEF 5 IV ×2 (13:13→19:48)
[2024-11-13] MEDS: NORMOSOL-R/PLASMALYTE-A 1000 IV ×2 (13:16→15:54)
--- NOTE | 2024-11-13 14:00 | PTCARENOTE ---
Patient vomited a large amount this afternoon. An order for Zofran was obtained and given.
--- NOTE | 2024-11-13 16:05 | CM ---
CM reviewed chart, patient hx Dementia, call to patients to complete initial assessment. reports his son, Maximino ([phone]), can be contacted to assist with assessment questions and discharge planning. Per son, patient lives with
in a two level home with basement, two steps to enter through front door, son reports did move bed to first floor. Patient independent with ambulation, no device used prior to hospitalization. Son reports he is concerned about his
mother returning home after rehab and is looking for LTC for patient. Son agreeable to referral to [facility] to discuss LTC planning after rehab for potential Memory Care Placement. Son and agreeable to referrals placed in [place]
area for rehab- [facility]. Son confirms patient has had VN and been to SNF in past, unsure name of SNF or VN agency. PCP Armond Pacheco, [facility].
Son would like to be point of contact moving forward ([phone]).
Plan; referrals placed for STR, son looking for LTC for patient
[2024-11-13] MEDS: LIPITOR 40 MG PO (17:55)
[2024-11-13] MEDS: ARICEPT 10 MG PO (19:47)
[2024-11-13] MEDS: RISPERDAL M-TAB (ORALLY DISINTEGRATING) 1 MG PO (20:02)
--- NOTE | 2024-11-13 20:30 | PTCARENOTE ---
Patient keeps on climbing OOB/ restless/ getting agitated/ gave her Risperdal X1 with no effect/ insisting to go home, Unable to reach on the phone. After talked to Son, still not able to relax. SORAYA Johnson made aware. New order for
Kati-chair.
[2024-11-14] MEDS: NORMOSOL-R/PLASMALYTE-A 1000 IV ×2 (01:04→14:08)
[2024-11-14] MEDS: TYLENOL PO ×3 (01:05→23:39)
[2024-11-14 06:27] LABS: Hematocrit 28.2 % (37.0-47.0); Hemoglobin 9.3 g/dL (12.0-16.0); Mean Corp Hgb Conc. 33.0 g/dL (33.0-37.0); Mean Corpuscular Volume 82.7 fL (81.0-99.0); Platelet Count 172 10^3/uL (130-400); Red Cell Dist. Width 13.1 % (11.5-14.5)
[2024-11-14 06:42] LABS: Blood Urea Nitrogen 21 mg/dl (7-17); Calcium 8.2 mg/dl (8.4-10.2); Carbon Dioxide 31 mmol/L (22-30); Chloride 99 mmol/L (98-107); Estimated Creatinine Clearance 35 ml/min; Glucose 178 mg/dl (70-99); Potassium 4.0 mmol/L (3.5-5.1); Sodium 137 mmol/L (135-145); eGFR > 60.00
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
[2024-11-14 10:50] VITALS: BP 146/86
[2024-11-14] MEDS: TYLENOL 650 MG PO ×4 (11:20→20:02)
[2024-11-14] MEDS: ASPIRIN 325 MG PO (11:20)
[2024-11-14] MEDS: COLACE 100 MG PO ×2 (11:20→20:05)
[2024-11-14] MEDS: NORVASC 5 MG PO (11:20)
[2024-11-14] MEDS: SENOKOT 17.2 MG PO ×2 (11:20→20:05)
--- NOTE | 2024-11-14 12:20 | W.PN.ORTHO ---
Today's Communication / Plan
-
79-year-old female postoperative day 2 right cephalomedullary nail fixation with Dr. Stevens
- Protected weightbearing with assist devices. PT/OT
- Recommend aspirin 325mg daily x4 weeks postop for DVT prophylaxis
- Continue with pain management as needed
- Dressings can be removed in 7-10 days. Change/reinforce as needed
- Follow up outpatient in 2 weeks for repeat xrays
- Case management consult for discharge planning
- Patient is orthopedically stable postoperatively. Will sign off. Please reach out with any additional questions
Assessment
.
Distal Motor Intact: Yes
Dressing:
Clean, dry and intact.
Plan
.
Surgery / Date: 11/12/2024 right CMN
DVT Prophylaxis: Aspirin
Activity:
Out of bed.
PT/OT
Subjective
.
.:
Patient moving in to chair at the time of my evaluation. Her is at the bedside. He reports that she is doing well.
Vital Signs and Labs
.
Vital Signs and Labs:
Lab Results
11/14/24 05:03
11/14/24 05:03
Temp Pulse Resp BP Pulse Ox
98.4 F 80 16 146/86 98
11/14/24 10:50 11/14/24 10:50 11/14/24 10:50 11/14/24 10:50 11/14/24 10:50
PT 14.7 Sec (11.4-14.6) H 11/12/24 11:52
INR 1.09 11/12/24 11:52
Physical Exam
-
Directed exam of right hip reveals surgical dressings in place. There is bloody drainage to the middle dressing. Proximal and distal dressings clean dry and intact. Mild tenderness to palpation of lateral hip. Thigh is soft and compressible. Able to
plantarflex and dorsiflex that ankle. Wiggles all toes. Calf soft and nontender. NVI distally
[2024-11-14 15:10] VITALS: BP 142/82
[2024-11-14] MEDS: LIPITOR 40 MG PO (16:38)
[2024-11-14] MEDS: RISPERDAL M-TAB (ORALLY DISINTEGRATING) 1 MG PO (20:02)
[2024-11-14] MEDS: ARICEPT 10 MG PO (20:03)
[2024-11-14] MEDS: ZYPREXA 2.5 MG IM (22:38)
--- NOTE | 2024-11-14 23:08 | PTCARENOTE ---
Received pt. in gerichair at shift change. Pt. becoming increasingly more agitated and was given PRN risperidone @2001 with little effect. Pt. continues to become increasingly agitated, yelling at staff, throwing drinks, thrashing in gerichair.
Unable to reason with patient as she starts to yell over staff members when they talk. House 3D ARTIST contacted and IM olanzapine ordered and given @2237. Pt. remains in gerichair under direct supervision of nursing staff, still agitated, safe environment
maintained.
[2024-11-15] MEDS: TYLENOL PO ×2 (04:09→13:15)
--- NOTE | 2024-11-15 04:11 | PTCARENOTE ---
Pt. sleeping off and on in gerichair since IM olanzapine injection. Pt. still combative and angry when woken, requiring 3 people for changing and hygiene. Safety maintained.
[2024-11-15 09:00] VITALS: BP 144/85
[2024-11-15] MEDS: SENOKOT 17.2 MG PO (10:34)
[2024-11-15] MEDS: TYLENOL 650 MG PO ×3 (10:34→21:08)
[2024-11-15] MEDS: ASPIRIN 325 MG PO (10:34)
[2024-11-15] MEDS: COLACE 100 MG PO (10:48)
[2024-11-15] MEDS: NORVASC 5 MG PO (10:48)
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
[2024-11-15 15:32] VITALS: BP 162/76
[2024-11-15 16:03] VITALS: BP 161/74; PULSE 87; O2SAT 96
[2024-11-15] MEDS: LIPITOR PO (17:40)
--- NOTE | 2024-11-15 18:22 | PTCARENOTE ---
Patient sleeping much of the day as she was given a dose of Zyprexa during the night.At 1730 she started banging on her table,hitting staff and was totally uncooperative.She tore off her dressing and would not allow us to replace it.Her was
called and will be in shortly.Psych was here today and did order Zyprexa at hs to be given.
[2024-11-15] MEDS: SENOKOT 8.6 MG PO (21:07)
[2024-11-15] MEDS: ARICEPT 10 MG PO (21:08)
[2024-11-15] MEDS: ZYPREXA 2.5 MG PO (21:08)
[2024-11-15] MEDS: LIPITOR 40 MG PO (21:11)
[2024-11-15] MEDS: COLACE PO (21:24)
[2024-11-15 23:04] VITALS: BP 137/78
--- NOTE | 2024-11-15 23:37 | PTCARENOTE ---
Pt. out of gerichair and into bed @2049, sleeping shortly after PO olanzapine with at bedside. Bed alarm tested and working. Call light within reach.
[2024-11-16] MEDS: TYLENOL PO ×3 (01:08→12:54)
[2024-11-16 07:45] VITALS: BP 175/110
[2024-11-16] MEDS: NORVASC 5 MG PO (08:31)
[2024-11-16] MEDS: ASPIRIN 325 MG PO (08:32)
[2024-11-16] MEDS: COLACE 100 MG PO ×2 (08:32→19:45)
[2024-11-16] MEDS: SENOKOT 17.2 MG PO ×2 (08:32→19:45)
[2024-11-16] MEDS: TYLENOL 650 MG PO ×3 (08:32→19:45)
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
--- NOTE | 2024-11-16 13:36 | PTCARENOTE ---
pt increasingly agitated and combative @ this time, seen by psych this morning and pt was pleasant and cooperative. left earlier in shift. notified, came to see pt @ bedside , reaching out to psych for oprions for PRN or changing Zyprexa
to BID.
--- NOTE | 2024-11-16 14:38 | PN.CDI ---
CDI
- -
CDI:
Physician Documentation Request
Admit Date: 11/12/24 14:04
Dear Doctor Micahel,
11/13- progress noted include a diagnosis of advanced dementia.
Psychiatry consult note includes 'sundowning', progressive dementia with night time agitation.
11/16 13:36 nursing not states 'pt increasingly agitated and combative @ this time'
Please further clarify the patient's advanced dementia:
Dementia with acute delirium - indicate type fo dementia, such as Alzheimer's, senile, vascular, Lewy body etc.
Baseline Dementia - indicate type, such as Alzheimer's, senile, vascular, Lewy body etc., and any associated behavioral disturbances (aggressive, combative or violent behavior) if present
Other
Use of terms such as suspected, likely, concern for, or probable (associated with a specific diagnosis that is being evaluated, monitored, or treated as if it exists) are acceptable and can be coded in the inpatient setting, when documented at the
time of discharge.
Thank you,
Luz Kovacs RN, BSN
CDI Specialist
tiger text
Please use your independent medical judgment in providing your response.
--- NOTE | 2024-11-16 14:44 | PN.CDI ---
CDI
- -
CDI:
Physician Documentation Request
Admit Date: 11/12/24 14:04
Dear Doctor Michael,
Please review the following and provide your response in the progress notes.
Clinical Indicators:
Height: 5 ft 2 inches
Weight: 97 lbs
BMI: 17.9
RD notes include 'underweight'
Please provide an associated diagnosis related to the BMI
BMI < or = to 19
Underweight
Weight Loss
Cachectic
Anorexia
- BMI is not significant
- Other
Use of terms such as suspected, likely, concern for, or probable (associated with a specific diagnosis that is being evaluated, monitored, or treated as if it exists) are acceptable and can be coded in the inpatient setting, when documented at the
time of discharge.
Thank you,
Luz Kovacs
CDI Specialist
Please use your independent medical judgment in providing your response.
[2024-11-16 15:33] VITALS: BP 144/86
[2024-11-16] MEDS: LIPITOR PO ×2 (19:29→19:31)
[2024-11-16] MEDS: ARICEPT PO ×2 (21:10→22:40)
[2024-11-16] MEDS: ZYPREXA PO ×2 (21:10→22:40)
[2024-11-16] MEDS: ZYPREXA 2.5 MG IM (21:47)
[2024-11-16] MEDS: STERILE WATER FOR INJECTION 2.1 ML IM (21:47)
--- NOTE | 2024-11-16 21:59 | W.PN.UPDATE ---
Update Note
Progress Note Update
Pt seen by me today to assess for degree of impairment Spoke with nursing and reviewed chart. Pt very pleasant, smiling though entire interview. Tells me she is from [place], that she has 4 sons, that she is 66 years old and was born in 1936. Cannot
say why she is here, says she is not in any pain. Low dose of zyprexa appears to be effective in managing agitation from her dementia.
[2024-11-16 23:45] VITALS: BP 141/84
[2024-11-17] MEDS: TYLENOL 650 MG PO ×2 (00:35→09:21)
[2024-11-17] MEDS: TYLENOL PO ×5 (04:00→22:36)
[2024-11-17 07:04] VITALS: BMI 19.3
[2024-11-17 07:20] VITALS: BP 142/71
[2024-11-17] MEDS: COLACE 100 MG PO (09:20)
[2024-11-17] MEDS: ASPIRIN 325 MG PO (09:20)
[2024-11-17] MEDS: SENOKOT 17.2 MG PO (09:20)
[2024-11-17] MEDS: NORVASC 5 MG PO (09:21)
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
[2024-11-17 11:35] VITALS: BP 131/85; PULSE 80; O2SAT 97
[2024-11-17 15:20] VITALS: BP 136/81
--- NOTE | 2024-11-17 15:38 | CM ---
CM following re: discharge planning.
Reviewed pt's chart, met with pt and spoke to pt's son Maximino over the phone to update on discharge plan progress.
CM spoke to [facility] director of it operations and she confirmed that pt is accepted for admission to [facility] tomorrow under car insurance benefits and 10:00 a.m orange picker time requested.
Pt's son Maximino is aware, expressed his agreement with discharge plan. IMM reviewed, placed on chart, pt has a copy.
[facility] to arrange ambulance transport BLS for tomorrow with requested 10:00 a.m orange picker time. PMNC completed and left with [facility] nursing repprt: [phone]
Discharge instructions fax: [phone]
D/C plan: [facility] tomorrow 11/18/24.
[2024-11-17] MEDS: LIPITOR PO (17:44)
--- NOTE | 2024-11-17 19:25 | W.PN.UPDATE ---
Update Note
Progress Note Update
pt seen by me today, discussed with nursing staff. Received prn of zyprexa last night, working to get pa acceptance. Pleasant on interview but oriented to person only.
[2024-11-17] MEDS: ARICEPT 10 MG PO (20:13)
[2024-11-17] MEDS: COLACE PO (20:16)
[2024-11-17] MEDS: SENOKOT PO (20:16)
[2024-11-17] MEDS: ZYPREXA 2.5 MG PO (20:16)
[2024-11-17 23:08] VITALS: BP 157/83
--- NOTE | 2024-11-18 02:54 | DOWNTIME ---
There was a [employer] Backpack Client Urology Physician Assistant Downtime on 11/18/2024 from 0100 to 11/18/2024 at 0235. Downtime documentation of patient's care, including medication administrations, has been reconciled in the electronic record per guidelines. Refer to the
patient's paper chart under the miscellaneous tab to see printed paper medication records and downtime forms.
[2024-11-18] MEDS: TYLENOL PO (04:50)
[2024-11-18 07:15] VITALS: BP 132/73
--- NOTE | 2024-11-18 08:56 | CM ---
CM following re: discharge planning.
Reviewed pt's chart, met with pt and spoke to pt's son Maximino over the phone to update on discharge plan progress.
CM spoke to [facility] memory care director and she confirmed that pt is accepted for admission to [facility] today under car insurance benefits.
Pt's son Maximino is aware, expressed his agreement with discharge plan. IMM reviewed yesterday.
arranged ambulance transport BLS with picker box operator time 10:00 a.m. PMNC completed and left with [facility] nursing repprt: [phone]
Discharge instructions fax: [phone]
D/C plan: [facility] today
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
[2024-11-18] MEDS: TYLENOL 650 MG PO (09:15)
[2024-11-18] MEDS: COLACE 100 MG PO (09:15)
[2024-11-18] MEDS: ASPIRIN 325 MG PO (09:15)
[2024-11-18] MEDS: NORVASC 5 MG PO (09:15)
[2024-11-18] MEDS: SENOKOT 17.2 MG PO (09:15)
== END 2024-11-18 10:25 | DRG 481 ==
LOC: 2 SOUTH 14:04
PROVIDERS: Nurse Practitioner Family; ADMITTING PHYSICIAN Internal Medicine; ATTENDING PHYSICIAN General Practice; CONSULT PHYSICIAN Orthopaedic Surgery; CONSULT PHYSICIAN Psychiatry & Neurology Psychiatry; EMERGENCY PHYSICIAN Student in an Organized Health Care Education/Training Program
PROC: 0QS606Z Reposition Right Upper Femur with Intramedullary Internal Fixation Device, Open Approach (ICD-10-PCS; 2024-11-12)
DX: S72.141A Displaced intertrochanteric fracture of right femur, initial encounter for closed fracture (principal); D62 Acute posthemorrhagic anemia; Z68.1 Body mass index [BMI] 19.9 or less, adult; N18.31 Chronic kidney disease, stage 3a; I12.9 Hypertensive chronic kidney disease with stage 1 through stage 4 chronic kidney disease, or unspecified chronic kidney disease; E78.5 Hyperlipidemia, unspecified; R26.89 Other abnormalities of gait and mobility; G30.9 Alzheimer's disease, unspecified; F02.80 Dementia in other diseases classified elsewhere, unspecified severity, without behavioral disturbance, psychotic disturbance, mood disturbance, and anxiety; R63.6 Underweight; V03.00XA Pedestrian on foot injured in collision with car, pick-up truck or van in nontraffic accident, initial encounter; Z79.899 Other long term (current) drug therapy; Z79.82 Long term (current) use of aspirin; Z91.148 Patient's other noncompliance with medication regimen for other reason
CPT/HCPCS: 73502; 73552; 76000; 80048; 80053; 83735; 85025; 85027; 85610; 85730; 86850; 86900; 86901; 93005; 96374; 97116; 97163; 97167; 97530; 99285; C1713; J2358

== ENCOUNTER → 2024-11-23 10:59 | Outpatient (REF) | payer OTHER, MEDICARE, SELFPAY ==
[2024-11-23 12:58] LABS: Hematocrit 26.1 % (37.0-47.0); Hemoglobin 8.2 g/dL (12.0-16.0); Mean Corp Hgb Conc. 31.4 g/dL (33.0-37.0); Mean Corpuscular Volume 86.4 fL (81.0-99.0); Platelet Count 297 10^3/uL (130-400); Red Cell Dist. Width 13.7 % (11.5-14.5)
[2024-11-23 13:33] LABS: Blood Urea Nitrogen 24 mg/dl (7-17); Calcium 8.5 mg/dl (8.4-10.2); Carbon Dioxide 29 mmol/L (22-30); Chloride 102 mmol/L (98-107); Glucose 151 mg/dl (70-99); Potassium 4.4 mmol/L (3.5-5.1); Sodium 136 mmol/L (135-145); eGFR > 60.00
== END ==
LOC: OLABN 10:59
PROVIDERS: ATTENDING PHYSICIAN Student in an Organized Health Care Education/Training Program
DX: I10 Essential (primary) hypertension (principal)
CPT/HCPCS: 36415; 80048; 85027

== ENCOUNTER → 2024-12-25 15:23 | Outpatient (REF) | payer MEDICARE, SELFPAY ==
[2024-12-25 16:50] LABS: Urine Character Slightly Cloudy (Clear)
[2024-12-25 17:11] LABS: Urine Red Blood Cell 0-2 /HPF (0-2); Urine Squamous Cell 0-2 /LPF (Few)
== END ==
LOC: OLABN 15:23
PROVIDERS: ATTENDING PHYSICIAN Student in an Organized Health Care Education/Training Program
DX: R35.0 Frequency of micturition (principal)
CPT/HCPCS: 81003; 81015; 87077; 87086

== ENCOUNTER → 2024-12-26 07:53 | Outpatient (REF) | payer MEDICARE, SELFPAY ==
[2024-12-26 10:51] LABS: Hematocrit 29.4 % (37.0-47.0); Hemoglobin 9.3 g/dL (12.0-16.0); Mean Corp Hgb Conc. 31.6 g/dL (33.0-37.0); Mean Corpuscular Volume 82.4 fL (81.0-99.0); Nucleated Red Blood Cells % 0 %; Platelet Count 260 10^3/uL (130-400); Red Cell Dist. Width 13.1 % (11.5-14.5)
[2024-12-26 11:03] LABS: Blood Urea Nitrogen 18 mg/dl (7-17); Calcium 8.9 mg/dl (8.4-10.2); Carbon Dioxide 30 mmol/L (22-30); Chloride 104 mmol/L (98-107); Glucose 130 mg/dl (70-99); Magnesium 2.0 mg/dl (1.6-2.3); Potassium 4.0 mmol/L (3.5-5.1); Sodium 139 mmol/L (135-145); eGFR > 60.00
== END ==
LOC: OLABN 07:53
PROVIDERS: ATTENDING PHYSICIAN Student in an Organized Health Care Education/Training Program
DX: E78.5 Hyperlipidemia, unspecified (principal); I10 Essential (primary) hypertension
CPT/HCPCS: 36415; 80048; 83735; 85025

== ENCOUNTER 2025-03-29 09:19 | Emergency (ER) | payer MEDICARE, SELFPAY ==
[2025-03-29 09:21] VITALS: BP 122/74
--- NOTE | 2025-03-29 09:47 | ED.GENMED ---
History of Present Illness
General
Chief Complaint: Fall
Source: spouse
Time Seen by Provider: 03/29/25 09:35
History of Present Illness
History of Present Illness:
79-year-old female with past medical history of hypertension and hyperlipidemia presenting to the emergency department for evaluation with her who reports that about a week and a half ago patient was at rehab and had an accidental fall, is
unable to describe the events of the fall as he was not present at the time but patient has since been complaining of some right sided pelvic pain and lower back pain which is why he brought the patient to the ER today. Patient does have a history
of mild dementia and is unable to recollect the events from the fall. Patient states that she has been ambulating at her baseline since. has no other concerns presently.
Past History
Past History
ED Past Medical History: HTN, Hypercholesterolemia and Other (Dementia)
ED Past Surgical History: Appendectomy and Gynecological (Hysterectomy)
Social History
Tobacco: Non-smoker
Alcohol: None
Drug: None
Personal:
Living: with family
Review of Systems
Review of Systems
All Other Systems: ROS reviewed and negative except as documented in HPI and ROS
Phy Exam
Physical Exam
Physical Exam:
GENERAL: Alert , in no apparent distress
HEAD: Normocephalic atraumatic
EYE: conjunctiva clear
NECK: Supple
ENT: o/p clr, mmm.
CARDIAC: Regular rate and rhythm
LUNGS: Clear breath sounds bilaterally, no acute respiratory distress, no wheezes/rales/rhonchi
BACK: no focal areas of tenderness
NEUROLOGICAL: Alert and oriented to self but not place or time
SKIN: Warm and dry, skin intact.
MUSCULOSKELETAL: RLE: No obvious deformity, no shortening or external rotation noted. Mild tenderness laterally along the pelvis on the right. Remainder of RLE is without pain on palpations. RLE is warm and well perfused
PSYCH: Normal and appropriate interaction.
Scores
Heart Failure Risk
Heart Failure Risk Score: Not Applicable
Heart Score for Chest Pain Patients
STEMI patient?: Not applicable
Withdrawal Assessment of Alcohol
Withdrawal Assessment Completed?: Not applicable
Course
Orders/Labs/Results
Orders:
Orders
03/29/25 09:45
CR Lumbar Spine Comp Min 4 Vw* Urgent
Comment:
Reason For Exam: low back pain, fall
CR Pelvis - 1 Or 2 Views Urgent
Comment:
Reason For Exam: pain, fall
Vital Signs
Initial and Last Documented VS:
Initial Vital Signs
Temp Pulse Resp BP Pulse Ox
98.3 F 83 20 122/74 96
03/29/25 09:21 03/29/25 09:21 03/29/25 09:21 03/29/25 09:21 03/29/25 09:21
Last Documented Vital Signs
Temp Pulse Resp BP Pulse Ox
98.3 F 83 20 122/74 96
03/29/25 09:21 03/29/25 09:21 03/29/25 09:21 03/29/25 09:21 03/29/25 09:51
MDM/Problems Addressed
Differential Diagnosis Includes:
Contusion
Pelvic fracture
Hip fracture
Compression fracture L-spine
Bursitis
MDM/Problems Addressed:
79-year-old female presenting to the ER for evaluation of right sided lower back and pelvic pain following a reported fall while at rehab about a week and a half ago, pain persists which is why brought her here today. Patient is without any
other extremity related concerns. states patient is at her usual baseline. X-ray of the pelvis and lumbosacral spine ordered. Disposition pending.
*Radiology
Radiology exam reviewed: preliminary read by ED provider ( possible L3 compression fracture, degenerative changes throughout) and radiology read reviewed
*Pulse Oximetry
SaO2: 96
Oxygen Mode of Delivery: Room air
Patient hypoxic: no
*Critical Care Note
Total Time (30-74mins, 75-104mins- exclusive of procedures): Not Applicable
Data Reviewed
Review of Other/Old Records Reveals: Records and Radiology Studies
Patient Management
Discussion with other providers: senior living staff
Escalation/DeEscalation of care consider admission/obs:
Patient's x-ray was concerning for an L3 compression fracture which I suspect is the cause for her pain. Patient is currently inpatient and lives at [facility]. I spoke to patient's nursing team there and advised them of the
findings on x-ray today. They note that the will often come and take the patient back home with him at nighttime and that the fall occurred at the patient's home and not at their facility. They will notify the medical provider at the
facility about patient's finding. Can continue [id number] medications for pain control.
ED Attending Note
-
Portions of this chart may have been created with voice recognition software.� Occasional wrong word or��sound alike� substitutions may have occurred due to the inherent limitations of voice recognition software.
Discharge Plan
Departure
Patient Disposition: Skilled Nursing/SNF
Date of Disposition: 03/29/25
Time of Disposition: 10:38
Discharge Problem:
Closed compression fracture of L3 vertebra
Instructions: Vertebral Compression Fracture ED
Prescriptions:
No Action
atorvastatin [Lipitor] 40 mg Tablet
40 mg PO QPM
donepezil 10 mg Tablet
10 mg PO HS
ferrous sulfate 300 mg (60 mg iron)/5 mL liquid
300 mg PO DAILY Qty: 500 0RF
amlodipine 5 mg Tablet
5 mg PO DAILY 30 Days Qty: 0 0RF
aspirin 325 mg Tablet
325 mg PO DAILY 28 Days Qty: 28 0RF
Rx Instructions:
For 4 weeks and then back to baby aspirin
docusate sodium 100 mg Capsule
100 mg PO BID Qty: 0 0RF
acetaminophen 325 mg Tablet
650 mg PO Q4HPRN PRN (Reason: pain) Qty: 30 0RF
olanzapine 2.5 mg Tablet
2.5 mg PO HS 30 Days Qty: 30 0RF
Referrals:
Leola Ward MD [Active, Neurosurgery]
UNKNOWN - PT DOES,NOT KNOW [Family Provider]
Interventions
Interventions:
*General Assessment Last Done: 03/29/25 09:21
*Neglect/Abuse Screening Last Done: 03/29/25 09:21
*ED COVID-19 Vaccine History Last Done: 03/29/25 10:54
*ED Influenza Vaccine History Last Done: 03/29/25 10:54
*Risk Screen - Suicide (C-SSRS) Last Done: 03/29/25 11:23
*Nursing Disposition Last Done: 03/29/25 11:27
ED-Musculoskeletal Assessment Last Done: 03/29/25 11:25
ED- Neurological Assessment Last Done: 03/29/25 11:24
Discharge Date and Time
Discharge Date/Time: 03/29/25 11:32
Print Language: SENEGALESE
== END 2025-03-29 11:32 ==
LOC: EMR 09:19
PROVIDERS: EMERGENCY PHYSICIAN Emergency Medicine
DX: S32.039A Unspecified fracture of third lumbar vertebra, initial encounter for closed fracture (principal); R10.20 Pelvic and perineal pain unspecified side; W19.XXXA Unspecified fall, initial encounter; I10 Essential (primary) hypertension; E78.00 Pure hypercholesterolemia, unspecified; F03.A0 Unspecified dementia, mild, without behavioral disturbance, psychotic disturbance, mood disturbance, and anxiety
CPT/HCPCS: 99283; 72110; 72170